=== PATIENT | female | born 1965 | race Caucasian/White ===

== ENCOUNTER 2017-12-18 08:16 | Day surgery (SDC) | payer BC ==
--- NOTE | 2017-12-13 12:49 | HP ---
PREOPERATIVE HISTORY AND PHYSICAL: DATE OF ADMISSION/SURGERY: 12/18/17 DATE OF OFFICE VISIT: 12/12/17 ATTENDING SURGEON: Mauricio Wang MD* (dictated by YULISSA Zarate). PROCEDURE: Left shoulder arthroscopic rotator cuff repair, decompression, debridement, and possible arthroscopic biceps tenodesis. CHIEF COMPLAINT: Left shoulder pain. HISTORY OF PRESENT ILLNESS: Maddie is a 52-year-old female who presents to the clinic for left shoulder pain for about 3 years, new or partial thickness tearing of the rotator cuff, bursal-sided. She has failed conservative measures to include therapy, exercise, and injections, and therefore agreed to undergo a left shoulder arthroscopic rotator cuff repair, decompression, debridement, and possible arthroscopic biceps tenodesis with Dr. Wang on 12/18. PAST MEDICAL HISTORY: Arthritis. PAST SURGICAL HISTORY: x3, appendectomy, tonsillectomy, kidney stone , lithotripsy, and C-spine surgery. Patient denies prior complications with anesthesia. MEDICATIONS: 1. Diclofenac sodium 75 mg 1 by mouth twice a day as needed for pain. 2. Silver sulfadiazine 1% applied once a day as needed. 3. Nizatidine 150 mg one by mouth twice a day. 4. Cyclobenzaprine/HCl 10 mg one by mouth three times a day as needed for spasm. 5. Fiorinal/codeine #3 50/25/40/30 mg one by mouth every 4 to 6 hours as needed for migraine. 6. Meclizine 25 mg 1 by mouth every 6 hours as needed. 7. Hydrocodone/acetaminophen 10 mg/325 mg oral by mouth every 4 hours as needed. 8. Fluticasone propionate 50 mcg spray 1 spray in each nostril daily. 9. Naproxen 500 mg 1 by mouth twice a day as needed. ALLERGIES: BETADINE. FAMILY HISTORY: Positive for diabetes and cancer and a grandfather with a DVT and a son with DVT in his arm. SOCIAL HISTORY: She lives with spouse. 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 She denies tobacco issues. Denies alcohol consumption. She exercises occasionally. She is right hand dominant. REVIEW OF SYSTEMS: A 14-point review of systems was reviewed with the patient. Positive for current complaint; otherwise, negative. Denies chest pain, shortness of breath, fever, chills, history of bleeding disorder, history of DVT or PE, history of HIV or hepatitis C. PHYSICAL EXAMINATION GENERAL: A 52-year-old well-developed, well-nourished female, in no acute distress. Alert and oriented x3. Appropriate mood and affect. Appropriate balance and coordination of the upper extremities. VITAL SIGNS: Height 6 feet, weight 171, blood pressure 120/70, respiratory rate 20, temperature 97.9, BMI 33.4. HEENT: Normocephalic, atraumatic. PERRLA. Throat: Clear. NECK: Supple. PULMONARY: Lungs are clear to auscultation bilaterally. No wheezing, rhonchi, or rales. CARDIO: Regular rate and rhythm. S1, S2. No murmurs, gallops, or rubs. No edema. ABDOMEN: Positive bowel sounds, soft, nontender. NEURO: Alert and oriented x3. Cranial nerves grossly intact. Sensation is intact to light touch. MUSCULOSKELETAL: Left upper extremity, skin is intact. No warmth or erythema. Tender over the bicipital groove in subacromial space. Forward flexion, abduction to 170, pain with abduction, external rotation to 75, internal rotation to T10. +4/5 strength in supraspinatus testing, +5/5 to subscap and infraspinatus with some pain. Positive Suraj impingement, Gilbert's, Speed's, and Kim. +2 radial pulses. Sensation intact to light touch distally. DIAGNOSTIC STUDIES: MRI of the left shoulder revealed high-grade bursal-sided tearing of the supraspinatus tendon with fluid along the bicipital groove and mild glenohumeral joint osteoarthritis. IMPRESSION: Left shoulder rotator cuff tear and biceps tendinitis. PLAN: The patient is scheduled to undergo a left shoulder arthroscopic rotator cuff repair, decompression, debridement, possible arthroscopic biceps tenodesis with Dr. Wang on 12/18/17. Oxycodone will be used for postop pain management. She will follow up with Dr. Wang in 10 to 14 days postop for followup and suture removal. YULISSA ZARATE [id number]/[facility] #: [id number] [facility]
[~2017-12-18 08:16] MED LIST: Buffered Lidocaine 0.9% SYRIN* 5 ML/SYR SYRINGE INTRADERM ONE; DiMENhydriNATE IV* 50 MG/ML VIAL IV PUSH PRN; Famotidine TAB* 20 MG ONE; Famotidine TAB* 20 MG PO ONE; Gabapentin CAP(*) 300 MG ONE; Gabapentin CAP(*) 300 MG PO ONE; Morphine INJ* 2 MG/ML 1 ML CARPUJECT IV PRN; Naloxone* 0.4 MG/ML 1 ML VIAL IV PRN; PROCHLORPERAZINE INJ 5 MG/ML 2 ML VIAL IV PRN; Scopolamine 1.5 mg* PATCH ONE; Scopolamine 1.5 mg* PATCH TRANSDERM ONE; fentaNYL* 50 MCG/ML 2 ML VIAL (100 MCG VIAL) IV PRN; oxyCODONE/Acetamin 5/325 MG* TAB PO PRN
[2017-12-18] MEDS ORDERED: ceFAZolin 2 GM PREMIX (*) 2 GM/50 ML BAG IVPB ONE (08:23)
[2017-12-18] MEDS ORDERED: fentaNYL* 50 MCG/ML 2 ML VIAL (100 MCG VIAL) ONE (08:29)
[2017-12-18] MEDS ORDERED: Midazolam* 1 MG/ML 5 ML VIAL (5 MG) ONE (08:29)
[2017-12-18] MEDS ORDERED: Bupivacaine 0.25% SDV* 30 ML ONE (09:39)
[2017-12-18] MEDS ORDERED: Morphine INJ* 10 MG/ML 1 ML CARPUJECT ONE (10:43)
[2017-12-18] MEDS ORDERED: Phenylephrine INJ* 10 MG/ML 1 ML VIAL (10 MG) ONE (10:54)
[2017-12-18] MEDS ORDERED: Labetalol IV* 5 MG/ML 20 ML VIAL ONE (10:54)
[2017-12-18] MEDS ORDERED: Propofol* 10 MG/ML 20 ML BTL IV PUSH ONE (10:54)
[2017-12-18] MEDS ORDERED: Lidocaine 2% PF * 5 ML VIAL ONE (10:54)
[2017-12-18] MEDS ORDERED: Dexamethasone IV* 4 MG/ML 1 ML (4 MG) ONE (10:54)
[2017-12-18] MEDS ORDERED: Ketorolac INJ* 30 MG/ML 1 ML VIAL ONE (10:54)
[2017-12-18] MEDS ORDERED: methylPREDNISolone ACETATE 80* 80 MG/ML 1 ML VIAL ONE (11:04)
[2017-12-18 12:35] VITALS: BP 158/80
--- NOTE | 2017-12-18 13:55 | OP ---
CC: PCP OPERATIVE REPORT: DATE OF OPERATION: 12/18/17 DATE OF : 63 SURGEON: Mauricio Wang MD PLUMBERS AND TOP HELPERS: YULISSA Ybarra An clerical administrative assistant was needed for the entirety of the case to help with positioning, retraction and was uti lized throughout all portions of the case. ANESTHESIOLOGIST: Dr. Charles. ANESTHESIA: General with interscalene block. PRE-OP DIAGNOSIS: Left shoulder bursal-sided partial thickness tear as well as bicipital tendinitis. POST-OP DIAGNOSIS: Intact supraspinatus tendon with partial thickness tearing in the subscapularis a nd impingement. OPERATIVE PROCEDURE: Left shoulder arthroscopy with: 1. Extensive glenohumeral debridement including biceps tenotomy and debridement of the subscapularis . 2. Subacromial decompression with acromioplasty. 3. Injection of 80 mg of Depo-Medrol. COMPLICATIONS: None. ESTIMATED BLOOD LOSS: Minimal. INDICATIONS: Maddie Alejandre is a 52-year-old female who has had persistent shoulder pain off and on fo r a long time. She has failed conservative management including injections, physical therapy, antiin flammatories. She has elected to proceed with left shoulder arthroscopy with possible rotator cuff t ear. DESCRIPTION OF PROCEDURE: The patient was greeted in the preoperative area by the attending surgeon. The correct extremity was marked and consent was confirmed. The patient underwent interscalene nerv e block by anesthesiologist, after which she was brought back to the operating suite where she was pl aced in supine position on the operating table and then positioned and transitioned. She then underw ent general anesthesia and endotracheal intubation after which she was placed in the right lateral de cubitus position. All bony prominences were padded. She was secured with a pegboard and axillary ro ll was placed. The left shoulder was draped unsterile with 10 pounds of traction. The left shoulder was prepped and draped in the usual sterile fashion beginning with chlorhexidine soap, scrub, and al cohol wipe and a final prep with ChloraPrep. After appropriate surgical pause indicating side, site, and procedure, and administration of antibiot ics, the posterolateral portal was made sharply with an 11-blade. Scope was introduced into the join t and the joint was examined. There was synovitis in the anterior aspect in the interval. The under surface of the subscap had partial tearing. The anterior portal was made in an outside-in fashion. The shaver was used to debride the anterior, posterior and superior labrum, which had unstable frayi ng. The biceps was taken through range of motion. There was evidence of a SLAP tear as well as bicep s instability. The biceps was then marked for later possible tenodesis. The undersurface of the sup raspinatus and infraspinatus looked intact. The undersurface of the subscapularis is debrided as wel l. The biceps was marked in case of need for arthroscopic tenodesis later. The inferior recess was i ntact. The scope was then removed and placed in subacromial space. There was abundant synovitis kathryn t was hyperemic. The lateral portal was made in an outside-in fashion. The shaver was used to debri de back the abundant synovitic bursa. The electrocautery device was used to maintain hemostasis. On ce the abundant bursa was removed, the undersurface of the acromion had a moderate anterior lateral s pur, which was debrided back using an acromioplasty. Electrocautery was used to maintain hemostasis at all times. Once this was done, attention was directed to the rotator cuff, which was gently probe d with a blunt probe. There was no large lesion. There was no evidence of high grade partial thickn ess bursal tearing. There was very minimal fraying. There was more bursa that was present. The hayde lity of the tendon was very good and a needle was brought into test the rotator cuff and was found to have a good quality. The scope was then brought back into the intraarticular joint and the undersur face of the cuff was visualized again, was found to be completely intact. The biceps was then tenoto mized at this point. The final images were obtained. An 18-gauge needle was placed in the subacromi al space, which was confirmed arthroscopically. The wounds were copiously irrigated with sterile sali ne. The portals were closed with 3-0 nylon. The subacromial space was injected with 0.25% Marcaine plain and 80 mg of Depo-Medrol. Sterile dressings were applied. She was awoken from anesthesia and transferred to the postoperative unit in stable condition. POSTOPERATIVE PLAN: She will be nonweightbearing. She will be allowed range of motion and start phy sical therapy next week. We will discharge her on pain medications. DVT prophylaxis was considered, but deferred due to no previous personal or family history. She will follow up with us in 14 days. [id number]/[facility] #: [id number]
[2017-12-19] MEDS ORDERED: Scopolamine PATCH Remove* 1 NOTE MISC PATCH OFF ONE (06:00)
== END 2017-12-18 12:35 | disposition home or self-care (01) ==
LOC: OREAST 08:16
PROVIDERS: ATTEND Orthopaedic Surgery
DX: M75.112 Incomplete rotator cuff tear or rupture of left shoulder, not specified as traumatic (principal); M75.42 Impingement syndrome of left shoulder; G89.18 Other acute postprocedural pain
CPT/HCPCS: A9270-GY; J0690; J1040; J1100; J1885; J2250; J2270; J2704; J3010

== ENCOUNTER 2018-11-29 15:07 | Emergency (ER) | payer BC ==
[2018-11-29 15:14] VITALS: BP 138/80
--- NOTE | 2018-11-29 16:50 | UC ---
Throat Pain/Nasal Wilder HPI - HPI Summary HPI Summary: 53 y/o female presents to the urgent care c/o C/O SINUS CONGESTION STARTING LAST WEEK. C/O HEAD PRESSURE AND COUGHING TO THE POINT OF VOMITING. ALSO C/O GREEN NASAL PHLEGM AND EARS HURTING. - History of Current Complaint Chief Complaint: UCRespiratory Stated Complaint: SINUS CONGESTION Time Seen by Provider: 11/29/18 16:28 Hx Obtained From: Patient Hx Last Menstrual Period: <1 WEEK AGO Onset/Duration: Gradual Onset, Lasting Weeks - 1.5weeks, Still Present, Worse Since - 2 days Severity: Moderate Pain Intensity: 3 Pain Scale Used: 0-10 Numeric Cough: Nonproductive Associated Signs & Symptoms: Positive: Sinus Discomfort, Nasal Discharge - green , Fever - at the begining of sym[toms, Other - PND. Negative: Dysphagia, Wheezing - Epiglottits Risk Factors Epiglottis Risk Factors: Negative - Allergies/Home Medications Allergies/Adverse Reactions: Allergies Allergy/AdvReac Type Severity Reaction Status Date / Time povidone-iodine Allergy Severe Rash Verified 11/29/18 15:14 Home Medications: Home Medications Diclofenac 1% GEL (NF) [Voltaren 1% GEL (NF)] 11/29/18 [History] PMH/Surg Hx/FS Hx/Imm Hx - Surgical History Surgical History: Yes Surgery Procedure, Year, and Place: C4-5 fusion; C SECTION X3, APPENDECTOMY. tonsillectomy, KIDNEY STONE AND LITHOTRIPSY. Lt SHOULDER SURG - ARTHROSCOPIC - Family History Known Family History: Negative: Cardiac Disease, Hypertension, Diabetes - Social History Alcohol Use: None Substance Use Type: None Smoking Status (MU): Never Smoked Tobacco Have You Smoked in the Last Year: No Physical Exam Vital Signs: Initial Vital Signs Temp 96.7 F 11/29/18 15:10 Pulse 95 11/29/18 15:10 Resp 16 11/29/18 15:10 BP 138/80 11/29/18 15:10 Pulse Ox 99 11/29/18 15:10 Throat Pain/Nasal Course/Dx - Differential Dx/Diagnosis Differential Diagnosis/HQI/PQRI: Laryngitis, Pharyngitis, Sinusitis, URI Provider Diagnosis: Acute bacterial sinusitis Discharge - Sign-Out/Discharge Documenting (check all that apply): Patient Departure - D/C home All imaging exams completed and their final reports reviewed: No Studies - Discharge Plan Condition: Stable Disposition: HOME Prescriptions: Amoxicillin/Clavulanate TAB* [Augmentin TAB 875*] 875 mg PO BID #20 tab Fluticasone NASAL SPRAY 50MCG* [Flonase NASAL SPRAY 50MCG*] 2 spray BOTH NARES QAM PRN #1 btl PRN Reason: Allergy Symptoms Patient Education Materials: Sinusitis (ED) Referrals: Velasquez Jon MD [Primary Care Provider] - 3 Days Additional Instructions: 1- Please increase fluid intake and rest. take full course of antibiotic to avoid resistance 2-Use Flonase as directed to help drain fluid. Also buy saline drops to clear sinuses 3-Take Tessalon PO to alleviates cough. Increase fluid intake, rest and eat well, 4-F/U w/ your PCP in 3 days if symptoms do not improve for further management and treatment - Billing Disposition and Condition Condition: STABLE Disposition: Home
== END 2018-11-29 17:02 | disposition home or self-care (01) ==
LOC: UCEAST 15:07
DX: J01.90 Acute sinusitis, unspecified (principal)
CPT/HCPCS: 99212; G0463

== ENCOUNTER 2019-03-19 17:20 | Emergency (ER) | payer BC ==
--- NOTE | 2019-03-19 17:22 | UC ---
Lower Extremity/Ankle HPI - HPI Summary HPI Summary: 53 y female presents with right ankle/foot pain since yesterday. She tells me that she was on her feet a lot for work and throughout the day noticed pain in her ankle that is mostly on the lateral aspect and the back of the ankle. Pain is worse with weight bearing and ambulation. Better with rest and elevated. No specific injury. Has been taking naproxen and tylenol with little relief. - History of Current Complaint Stated Complaint: FOOT PAIN, AND ANKLE PAIN Time Seen by Provider: 03/19/19 17:22 Hx Obtained From: Patient Hx Last Menstrual Period: <1 WEEK AGO Onset/Duration: Sudden Onset Severity Initially: Moderate Severity Currently: Moderate Pain Intensity: 5 Pain Scale Used: 0-10 Numeric Aggravating Factor(s): Standing, Ambulation Alleviating Factor(s): Rest Able to Bear Weight: Yes - Allergies/Home Medications Allergies/Adverse Reactions: Allergies Allergy/AdvReac Type Severity Reaction Status Date / Time povidone-iodine Allergy Severe Rash Verified 03/19/19 17:32 Home Medications: Home Medications Acetaminophen [Pain Relief Extra Strength] 1,000 mg PO ONCE PRN 03/19/19 [ History Confirmed 03/19/19] PMH/Surg Hx/FS Hx/Imm Hx - Additional Past Medical History Additional PMH: Dizziness Neurological History: Migraine - Surgical History Surgical History: Yes Surgery Procedure, Year, and Place: C4-5 fusion; C SECTION X3, APPENDECTOMY. tonsillectomy, KIDNEY STONE AND LITHOTRIPSY. Lt SHOULDER SURG - ARTHROSCOPIC - Family History Known Family History: Positive: Hypertension, Diabetes Negative: Cardiac Disease - Social History Occupation: Employed Full-time Lives: With Family Alcohol Use: None Substance Use Type: None Smoking Status (MU): Never Smoked Tobacco Have You Smoked in the Last Year: No Review of Systems All Other Systems Reviewed And Are Negative: Yes Constitutional: Positive: Negative Skin: Positive: Negative Respiratory: Positive: Negative Cardiovascular: Positive: Negative Neurovascular: Positive: Negative Musculoskeletal: Positive: Other: - Right ankle pain Neurological: Positive: Negative Psychological: Positive: Negative Physical Exam - Summary Physical Exam Summary: GENERAL: NAD. WDWN. No pain distress. SKIN: No rashes, sores, lesions, or open wounds. CHEST: No accessory muscle use. Breathing comfortably and in no distress. CV: Pulses intact PT and DP. Cap refill <2seconds MSK: RIGHT ANKLE: FROM, but pain in achilles with dorsiflexion and plantar flexion. TTP at achilles tendon. NTTP foot or 5th MT. Strength 5/5. No edema or obvious bony deformities. Negative talar tilt. No increased laxity. Negative [place] test. Negative Bhavesh sign. Calf soft and without edema or pain. NEURO: Alert. Sensations intact and symmetric B/L LEs PSYCH: Age appropriate behavior. Triage Information Reviewed: Yes Vital Signs: Vital Signs: Temp Pulse Resp BP Pulse Ox 97.9 F 79 16 137/74 98 03/19/19 17:29 03/19/19 17:29 03/19/19 17:29 03/19/19 17:29 03/19/19 17:29 Vital Signs Reviewed: Yes Lower Extremity Course/Dx - Course Course Of Treatment: XR foot and ankle: IMPRESSION: NO ACUTE OSSEOUS INJURY. IF SYMPTOMS PERSIST, RECOMMEND REPEAT IMAGING. Suspect achilles tendinitis. Discussed results with pt. Advised to rest, ice, and elevate. Will place her in a CAM boot for comfort and have her f/u with Orthopedics if her pain does not improve with this. She is asking for something stronger than naproxen for pain and is requesting norco - will rx for a short supply of tramadol for her discomfort. istop: Reference #: [id number] - Differential Dx/Diagnosis Provider Diagnosis: Right Achilles tendinitis Discharge - Sign-Out/Discharge Documenting (check all that apply): Patient Departure All imaging exams completed and their final reports reviewed: Yes - Discharge Plan Condition: Stable Disposition: HOME Prescriptions: traMADol TAB* [Ultram*] 50 mg PO Q12H PRN #6 tab MDD 2 PRN Reason: Pain Patient Education Materials: Achilles Tendinitis (ED) Referrals: Velasquez Jon MD [Medical Doctor] - Delfino Lawson MD [Medical Doctor] - If Needed Additional Instructions: If you develop a fever, shortness of breath, chest pain, new or worsening symptoms - please call your PCP or go to the ED immediately. 1) Rest and elevate your foot/ankle. Use the walking boot as much as possible. 2) Continue taking naproxen for discomfort 3) If your symptoms do not improve within 1 week - please call Orthopedics at the number below to schedule an appointment for further evaluation - Billing Disposition and Condition Condition: STABLE Disposition: Home
[2019-03-19 17:32] VITALS: BP 137/74
== END 2019-03-19 18:18 | disposition home or self-care (01) ==
LOC: UCEAST 17:20
DX: M76.61 Achilles tendinitis, right leg (principal)
CPT/HCPCS: 99213; G0463

== ENCOUNTER → 2019-06-10 08:58 | Day surgery (SDC) | payer BC ==
[~2019-06-10 08:58] MED LIST changes: +Atracurium* 10 MG/ML 10 ML VIAL ONE; -Buffered Lidocaine 0.9% SYRIN* 5 ML/SYR SYRINGE INTRADERM ONE; +Buffered Lidocaine 1% SYRIN* 1 ML/SYRINGE INTRADERM ONE; +Dexamethasone IV* 4 MG/ML 1 ML (4 MG) IV SLOW PU ONE; +Dexamethasone IV* 4 MG/ML 1 ML (4 MG) ONE; +DiMENhydriNATE IV* 50 MG/ML VIAL ONE; -Famotidine TAB* 20 MG ONE; -Famotidine TAB* 20 MG PO ONE; -Gabapentin CAP(*) 300 MG ONE; -Gabapentin CAP(*) 300 MG PO ONE; +HYDROmorphone INJ1* 1 MG/ML SYRINGE IV PRN; +Lactated Ringers 1000 ML Bag* 1,000 ML IV SCH; +Lidocaine 2% PF * 5 ML VIAL ONE; +Midazolam* 1 MG/ML 5 ML VIAL (5 MG) ONE; -Morphine INJ* 2 MG/ML 1 ML CARPUJECT IV PRN; +Ondansetron INJ* 2 MG/ML VIAL IV PRN; +Ondansetron INJ* 2 MG/ML VIAL ONE; -PROCHLORPERAZINE INJ 5 MG/ML 2 ML VIAL IV PRN; +Propofol* 10 MG/ML 20 ML BTL ONE; +ROPIVACAINE 5 MG/ML 30 ML BTL (0.5%) ONE; -Scopolamine 1.5 mg* PATCH TRANSDERM ONE; +Scopolamine 1.5 mg* PATCH TRANSDERM PRN; +ceFAZolin 2 GM PREMIX in ORs 2 GM/50 ML BAG ONE; +fentaNYL* 50 MCG/ML 2 ML VIAL (100 MCG VIAL) ONE
[2019-06-10 13:16] VITALS: BP 162/88
--- NOTE | 2019-06-10 18:55 | OP ---
CC: PCP, Kathy Rucker MD * DATE OF OPERATION: 06/10/19 - [facility] DATE OF : 63 SURGEON: Mauricio Wang MD CARE PARTNER: YULISSA Ybarra. An assistant field hockey coach was needed for the entirety of the case to help with positioning, retraction, and was utilized throughout all portions of the case. ANESTHESIOLOGIST: Dr. Avendaño. ANESTHESIA: General with interscalene block. PRE-OP DIAGNOSIS: Left shoulder acromioclavicular joint arthritis with recurrent impingement. POST-OP DIAGNOSIS: Left shoulder acromioclavicular joint arthritis with recurrent impingement. OPERATIVE PROCEDURE: Left shoulder revision arthroscopy with debridement and revision decompression as well as distal clavicle excision arthroscopic. COMPLICATIONS: None. ESTIMATED BLOOD LOSS: Minimal. IMPLANTS USED: None. INDICATIONS: Maddie Alejandre is a 53-year-old female, who underwent a previous decompression with biceps tenotomy. She did well initially, then started to develop some AC joint arthritis. After extensive discussion of the risks and benefits of surgical versus nonoperative treatment, she has elected to proceed with surgical treatment. Risks included, but are not limited to bleeding; infection; damage to nerves, vessels, surrounding structures; wound nonhealing; persistent pain; need for further surgery; scarring; stiffness; incomplete relief of symptoms; risks of anesthesia. DESCRIPTION OF PROCEDURE: The patient was greeted in the preoperative area by the attending surgeon. Correct extremity was marked and consent was confirmed. The patient underwent interscalene nerve block by the anesthesiologist, after which she was brought back to the operating suite and she was placed in supine position on the operating table. She then underwent general anesthesia and endotracheal intubation. She was then positioned in the right lateral decubitus position. Bony prominences were padded. She was secured with a pegboard. An axillary roll was placed. The left arm was draped unsterile with 10 pounds of traction. The left shoulder was then prepped and draped in the usual sterile fashion beginning with chlorhexidine soap, scrub, and alcohol wipe , and a final prep with ChloraPrep. After appropriate surgical pause indicating side, site, procedure, and administration of antibiotics, the standard postero-lateral portal was made sharply with 11-blade. Scope was introduced into the joint and the joint was examined. There were grade 0 to 1 changes in the glenohumeral joint. The undersurface of the rotator cuff was intact. There was evidence of previous biceps tenotomy, but there was unstable fraying of the superior labrum. The anterior portal was made in an outside-in fashion and the unstable labrum anterior and superior were debrided back using shaver. Once this was completed , attention was directed to the subacromial space. With the scope positioned in the subacromial space, the lateral portal was made. There was some recurrent bursitis that was present. This was debrided back using a shaver. The undersurface of the acromion was skeletonized using electrocautery device. The 4-0 oval ahmet was then used to do a small revision acromioplasty. The AC joint was examined and once the scar was removed, attention was directed to the AC joint. With the ahmet brought into the anterior portal, the distal 8 mm of clavicle was then resected using a 4-0 oval ahmet. Care was taken not to damage the CC ligaments. All fluid and debris were removed. The shoulder was visualized and the AC joint was resected appropriately. The wounds were then copiously irrigated with sterile saline. The portals were closed with 3-0 nylon. Sterile dressings were applied. A Cryo/Cuff and a regular sling were applied. She was awoken from anesthesia and transferred to the PACU in stable condition. POSTOPERATIVE PLAN: She will be nonweightbearing. She will start range of motion on postop day 1. She will be discharged on pain medication and antibiotics due to revision surgery. DVT prophylaxis was considered, but deferred due to no previous personal or family history. I will see the patient back in 10 to 14 days. [id number]/[facility] #: [id number] [place]
== END | disposition home or self-care (01) ==
LOC: OR 08:58
PROVIDERS: ATTEND Orthopaedic Surgery
DX: M19.212 Secondary osteoarthritis, left shoulder (principal); M25.512 Pain in left shoulder; E78.2 Mixed hyperlipidemia; K21.9 Gastro-esophageal reflux disease without esophagitis; M19.90 Unspecified osteoarthritis, unspecified site; G89.18 Other acute postprocedural pain
CPT/HCPCS: A9270-GY; J0690; J1100; J1240; J2250; J2405; J2704; J2795; J3010